=== PATIENT | female | born 1960 | race Caucasian/White ===

== ENCOUNTER → 2016-05-22 | Outpatient (REF) | payer BC, OTHER ==
[2016-05-26 00:06] LABS: Lyme Disease IgG/IgM Antibodie <0.91 ISR (0.00-0.90); Lyme Disease IgM Ab Quantitati <0.80 index (0.00-0.79)
== END ==
LOC: M LAB REF 15:03
PROVIDERS: ATTEND Nurse Practitioner Adult Health
DX: G50.0 Trigeminal neuralgia (principal)

== ENCOUNTER 2017-02-04 17:29 | Emergency (ER) | payer BC, OTHER ==
[~2017-02-04] VITALS: Ht 172.7 cm; Wt 75.0 kg
[2017-02-04 17:30] VITALS: BP 145/86
[2017-02-04] MEDS ORDERED: LISI2.5T3 PO (17:39)
[2017-02-04] MEDS ORDERED: ASPI325T PO (17:39)
[2017-02-04] MEDS ORDERED: ASPI81TA85 PO (17:39)
[2017-02-04] MEDS ORDERED: RANI75TA9 PO (17:39)
[2017-02-04] MEDS ORDERED: IBUP200C10 PO (17:39)
--- NOTE | 2017-02-04 19:20 | REPUSA ---
HISTORY: Trauma. TECHNIQUE: Multiple thin section helically-acquired axially-displayed and helically acquired coronall y displayed computed tomographic images of the face are obtained from the mandible through the fronta l sinuses, with images obtained at soft tissue and bone window. 2D reformatted images were performed. FINDINGS: Normal bony mineralization. No fractures. Normal orbits. Normal, clear paranasal sinuses. Normal oral and nasal cavities. Normal infratemporal fossa and deep parapharyngeal spaces with normal muscles of mastication. Normal parotid and submandibular glands. IMPRESSION: Normal examination of the face. Thank you for your kind referral of this patient
--- NOTE | 2017-02-04 19:30 | REPUSA ---
CLINICAL HISTORY: Headaches. TECHNIQUE: Multiple axial brain CT scan sections were obtained from base to vertex without contrast a dministration. COMMENTS: The study shows normal configuration of sella turcica. There are no intra or extra-axial collections. There is no mass effect or midline shift. There is no evidence of hematoma formation. No hydrocephal us is present. No abnormal calcifications are noted. No significant abnormalities are seen either in the posterior fossa or supratentorial compartment. The sinuses and mastoid air cells are patent. IMPRESSION: No evidence of acute intracranial pathology. Thank you for your kind referral of this patient.
== END 2017-02-04 20:21 | disposition home or self-care (01) ==
LOC: M ED 17:29
DX: S00.83XA Contusion of other part of head, initial encounter (principal); W22.8XXA Striking against or struck by other objects, initial encounter; Y92.89 Other specified places as the place of occurrence of the external cause; Y93.89 Activity, other specified; Y99.8 Other external cause status; J45.909 Unspecified asthma, uncomplicated; G50.0 Trigeminal neuralgia; Z79.82 Long term (current) use of aspirin; Z79.899 Other long term (current) drug therapy; Z88.8 Allergy status to other drugs, medicaments and biological substances

== ENCOUNTER → 2017-05-14 | Outpatient (REF) | payer BC ==
[2017-05-14 16:10] LABS: LIPASE 246 U/L (73-393)
[2017-05-14 16:10] LABS: AMYLASE 133 U/L (25-115)
[2017-05-17 10:14] LABS: CONTROL LINE HPYORI INT CTR LINE PRESENT; H PYLORI QUALITATIVE IgG NEGATIVE (NEGATIVE)
== END ==
LOC: M LAB REF 15:50
DX: R10.9 Unspecified abdominal pain (principal); R11.0 Nausea
CPT/HCPCS: 82150

== ENCOUNTER → 2019-07-20 | Outpatient (CLI) | payer BC ==
[~2019-07-20] MED LIST: ASPI-1 PO; ASPI81TA85 PO; IBUP200C25 PO; LISI-1046 PO; RANI75TA15 PO
--- NOTE | 2019-07-20 12:35 | REP ---
FOCUSED RIGHT BREAST SONOGRAPHY: HISTORY: Right breast pain. 9:30 position 9 cm from the nipple and 11-o'clock position 8 cm from the nipple. Comparison mammography February 27, 2019 and comparison right axillary sonography February 27, 2019. SONOGRAPHIC FINDINGS: Focused right breast sonography is performed at 9:30-o'clock position, 9 cm from nipple and at 11-o'clock position, 8 cm from the nipple. In these areas, normal fibroglandular background echotexture is seen. No cyst, mass, or acoustic shadowing is seen. No architectural distortion is noted. Right axillary sonography is performed and multiple normal-sized normal appearing lymph nodes are seen. The largest measures 1.1 x 2.7 x 0.7 cm in diameter. They appear to have hilar fatty architecture. IMPRESSION: BIRADS category 2 benign findings. Clinical followup is advised.
== END ==
LOC: M WHC 10:35
PROVIDERS: ATTEND Surgery
DX: N64.4 Mastodynia (principal); M79.621 Pain in right upper arm

== ENCOUNTER → 2019-10-18 | Outpatient (CLI) | payer BC ==
[~2019-10-18] MED LIST changes: -ASPI81TA85 PO; +ASPI81TA86 PO; -LISI-1046 PO; +LISI2.5T2 PO
--- NOTE | 2019-12-08 13:59 | REP ---
ABDOMINAL AORTIC ULTRASOUND: HISTORY: Family history of abdominal aortic aneurysm. COMPARISON: None available. Delay in reporting results from malfunction of the hospital computer system as a results of a malware attack. TECHNIQUE: The current study is performed with transabdominal and color Doppler imaging. FINDINGS: The abdominal aorta proximally measures 2.3 x 2.5 cm. Renal artery level is 1.9 x 1.2 cm. Mid-aorta is 1.7 x 1.8 cm. Distal aorta above bifurcation is 1.6 x 1.6 cm. Right common iliac artery measures 0.8 x 1.3 cm. Left common iliac artery measures 1.0 x 1.0 cm. IMPRESSION: These measurements are normal. There is no ultrasound evidence of abdominal aortic aneurysm. MTDD
== END ==
LOC: M WHC 13:04
PROVIDERS: ATTEND Physician Assistant
DX: Z86.79 Personal history of other diseases of the circulatory system (principal)

== ENCOUNTER → 2020-01-25 | Outpatient (REF) | payer BC | LOC: M LAB REF 17:01 | PROVIDERS: ATTEND Family Medicine | DX: D48.5 Neoplasm of uncertain behavior of skin (principal) ==

== ENCOUNTER → 2020-03-01 | Outpatient (CLI) | payer BC ==
[2020-03-01 13:25] LABS: BASO # 0.1 10^3/uL (0.0-0.2); BASO % 0.7 % (0.0-1.0); EOS # 0.1 10^3/uL (0.0-0.5); EOS % 1.7 % (0.0-3.0); HEMATOCRIT 41.8 % (36.0-47.0); HEMOGLOBIN 13.1 g/dl (12.0-15.5); LYMPH # 1.9 10^3/uL (1.5-5.0); LYMPH % 27.4 % (24.0-44.0); MEAN CORPUSCULAR HEMOGLOBIN 27.7 pg (27.0-33.0); MEAN CORPUSCULAR HGB CONC 31.3 g/dl (32.0-36.5); MEAN CORPUSCULAR VOLUME 88.4 fl (80.0-96.0); MONO # 0.5 10^3/uL (0.0-0.8); MONO % 6.8 % (0.0-5.0); NEUTROPHILS # 4.4 10^3/uL (1.5-8.5); NEUTROPHILS % 63.1 % (36.0-66.0); PLATELET COUNT, AUTOMATED 296 10^3/uL (150-450); RED BLOOD COUNT 4.73 10^6/uL (4.00-5.40); WHITE BLOOD COUNT 6.9 10^3/uL (4.0-10.0)
[2020-03-01 13:49] LABS: ERYTHROCYTE SEDIMENTATION RATE 21 mm/hr (0-30)
[2020-03-01 13:56] LABS: ALBUMIN 3.9 GM/DL (3.2-5.2); ALT/SGPT 25 U/L (12-78); BILIRUBIN,TOTAL 0.4 MG/DL (0.2-1.0); BLOOD UREA NITROGEN 13 MG/DL (7-18); CALCIUM LEVEL 9.6 MG/DL (8.8-10.2); CARBON DIOXIDE LEVEL 28 MEQ/L (21-32); CHLORIDE LEVEL 105 MEQ/L (98-107); CREATININE FOR GFR 0.92 MG/DL (0.55-1.30); GLOMERULAR FILTRATION RATE > 60.0 (>45); GLUCOSE, FASTING 78 MG/DL (70-100); POTASSIUM SERUM 4.1 MEQ/L (3.5-5.1); SODIUM LEVEL 138 MEQ/L (136-145); TOTAL PROTEIN 8.2 GM/DL (6.4-8.2); URIC ACID 4.7 MG/DL (2.6-6.0)
--- NOTE | 2020-03-01 14:41 | REPPI ---
INDICATION: M25.562 PAIN IN LEFT KNEE. COMPARISON: None. TECHNIQUE: Five views. FINDINGS: Five views of the left knee demonstrate non articular spurring of the superior pole of patella consistent with chronic quadriceps tendinopathy. Bones, joints and soft tissues are otherwise unremarkable. No erosive change. There is no evidence of joint effusion.. No fracture or subluxation is seen. No opaque foreign body noted. IMPRESSION: Spurring on the superior pole of the patella at the quadriceps tendon insertion. Otherwise negative.. <Electronically signed by Asael Lange > 03/01/20 [id number]
[2020-03-02 16:08] LABS: Lyme Disease IgG/IgM Antibodie <0.91 ISR (0.00-0.90); Lyme Disease IgM Ab Quantitati <0.80 index (0.00-0.79)
== END ==
LOC: M PLAIMG 11:37
PROVIDERS: ATTEND Physician Assistant
DX: M25.762 Osteophyte, left knee (principal)

== ENCOUNTER → 2020-03-01 | Outpatient (CLI) | payer BC ==
--- NOTE | 2020-03-01 11:24 | REPMRS ---
Patient History The patient states she had a clinical breast exam in August 2019. Patient is postmenopausal. Family history of colorectal cancer at age 70 in maternal grandmother, colorectal cancer at age 69 in maternal aunt. Taking unspecified hormones for 3 months. Diagnostic Bilateral Mammo: March 01, 2020 - Exam #: [id number] Bilateral CC and MLO view(s) were taken. Technologist: Lizeth Walker, Technologist Prior study comparison: February 27, 2019, bilateral digital mammo screening bilat, performed at [facility]. January 18, 2018, bilateral digital mammo screening bilat, performed at [facility]. September 16, 2016, bilateral digital mammo screening bilat, performed at [facility]. FINDINGS: There are scattered fibroglandular densities. The Volpara volumetric breast density category is:B. There has been no change in the appearance of the mammogram from the prior studies. There is a mild amount of scattered fibroglandular density which is fairly symmetric. There is no interval development of dominant mass, architectural distortion, or grouped microcalcification suggestive of malignancy. 3-D tomosynthesis shows no additional findings. Assessment: BI-RADS/ACR category 1 mammogram. Negative Mammogram. Recommendation Routine screening mammogram of both breasts in 1 year (for women over age 40). This patient's [facility] Lifetime Breast Cancer Risk is estimated at 4.4 %. This mammogram was interpreted with the aid of an FDA-approved computer-aided dectection system. Electronically Signed By: Asael Lange MD 03/01/20 [id number]
== END ==
LOC: M WHC 10:39
PROVIDERS: ATTEND Surgery
DX: I88.9 Nonspecific lymphadenitis, unspecified (principal); N64.4 Mastodynia; M79.621 Pain in right upper arm; Z79.899 Other long term (current) drug therapy
CPT/HCPCS: 77066; G0279

== ENCOUNTER → 2020-08-02 | Outpatient (REF) | payer BC | LOC: M LAB REF 15:25 | PROVIDERS: ATTEND Family Medicine | DX: N76.0 Acute vaginitis (principal) ==

== ENCOUNTER → 2020-11-15 | Outpatient (CLI) | payer BC ==
[~2020-11-15] MED LIST changes: -LISI2.5T2 PO; +LISI2.5T9 PO
--- NOTE | 2020-11-15 12:38 | DEXAMM ---
INDICATION: Z13.820 SCREENING FOR OSTEOPOROSIS. COMPARISON: None. TECHNIQUE: Bone density was measured using dual-energy x-ray absorptionmetry (DEXA). FINDINGS: AP SPINE L1-L4 BMD 1.254 g/cm2 Young Adult T-Score 0.5 Age Matched Z-Score 1.8. LT FEMUR, TOTAL BMD 1.056 g/cm2 Young Adult T-Score 0.4 Age Matched Z-Score 1.4. LT NECK BMD 0.973 g/cm2 Young Adult T-Score -0.5 Age Matched Z-Score 0.8. RT FEMUR, TOTAL BMD 0.983 g/cm2 Young Adult T-Score -0.2 Age Matched Z-Score 0.8. RT NECK BMD 0.910 g/cm2 Young Adult T-Score -0.9 Age Matched Z-Score 0.4. IMPRESSION: There is normal bone density of the spine. There is normal bone density of the left hip. There is normal bone density of the right hip. FOLLOW-UP: Recommendation for the next bone density exam: 5-10 years. <Electronically signed by Asael Lange > 11/15/20 [id number]
== END ==
LOC: M WHC 10:07
PROVIDERS: ATTEND Family Medicine
DX: Z13.820 Encounter for screening for osteoporosis (principal)

== ENCOUNTER → 2020-11-19 | Outpatient (CLI) | payer BC ==
[2020-11-19 14:52] LABS: BLOOD UREA NITROGEN 13 MG/DL (7-18); CALCIUM LEVEL 8.9 MG/DL (8.8-10.2); CARBON DIOXIDE LEVEL 26 MEQ/L (21-32); CHLORIDE LEVEL 108 MEQ/L (98-107); CREATININE FOR GFR 0.93 MG/DL (0.55-1.30); GLOMERULAR FILTRATION RATE > 60.0 (>45); GLUCOSE, FASTING 84 MG/DL (70-100); POTASSIUM SERUM 4.5 MEQ/L (3.5-5.1); SODIUM LEVEL 139 MEQ/L (136-145)
== END ==
LOC: M PLALAB 11:21
PROVIDERS: ATTEND Family Medicine
DX: I10 Essential (primary) hypertension (principal)

== ENCOUNTER → 2020-11-20 | Outpatient (CLI) | payer BC ==
--- NOTE | 2020-11-21 09:10 | REP ---
INDICATION: POST COITAL BLEEDING COMPARISON: None. TECHNIQUE: Transabdominal pelvic ultrasound followed by transvaginal examination for better evaluation of the endometrium and adnexa with color Doppler evaluation of the ovaries. FINDINGS: Bladder is unremarkable and measures 14.0 x 10.5 x 10.5 cm. Patient is noted to be status post total hysterectomy. No pelvic fluid or adnexal mass lesion. IMPRESSION: Unremarkable examination. <Electronically signed by Rodrigue Carranza > 11/21/20 [id number]
== END ==
LOC: M RAD 11:16
PROVIDERS: ATTEND Family Medicine
DX: N93.0 Postcoital and contact bleeding (principal)

== ENCOUNTER → 2020-12-12 | Outpatient (CLI) | payer BC ==
--- NOTE | 2020-12-12 13:05 | REP ---
INDICATION: DISORDER OF CIRCULATORY SYSTEM COMPARISON: None. TECHNIQUE: Real-time ultrasound evaluation and duplex Doppler interrogation of the extracranial carotid vasculature is performed. FINDINGS: There is mild plaquing and narrowing in both carotid bulbs extending into the internal and external carotid arteries. Luminal narrowing is less than 50%. There is no evidence of hemodynamically significant stenosis of either internal carotid artery. Normal flow velocities are seen. The vertebral arteries demonstrate normal direction of flow. RIGHT LEFT Peak systolic velocity ICA 128 cm/s 118 cm/s End diastolic velocity ICA 46.9 cm/s 42.6 cm/s Peak systolic velocity CCA 99.4 cm/s 118cm/s Peak systolic velocity ECA 117 cm/s 98.8 cm/s ICA/CCA ratio 1.3 1.0 IMPRESSION: Bilateral luminal narrowing of the internal carotid arteries less than 50%. No evidence of hemodynamically significant stenosis. <Electronically signed by John Gaitan > 12/12/20 [id number]
== END ==
LOC: M WHC 12:15
PROVIDERS: ATTEND Family Medicine
DX: I99.8 Other disorder of circulatory system (principal)

== ENCOUNTER → 2021-02-10 | Outpatient (REF) | payer BC | LOC: M LAB REF 16:55 | PROVIDERS: ATTEND Physician Assistant | DX: B00.1 Herpesviral vesicular dermatitis (principal) ==

== ENCOUNTER → 2021-02-24 | Outpatient (CLI) | payer BC ==
[2021-02-24 13:21] LABS: BASO # 0.1 10^3/uL (0.0-0.2); BASO % 0.8 % (0.0-1.0); EOS # 0.2 10^3/uL (0.0-0.5); EOS % 2.6 % (0.0-3.0); HEMATOCRIT 41.6 % (36.0-47.0); HEMOGLOBIN 13.8 g/dl (12.0-15.5); LYMPH # 1.9 10^3/uL (1.5-5.0); LYMPH % 25.8 % (24.0-44.0); MEAN CORPUSCULAR HEMOGLOBIN 30.1 pg (27.0-33.0); MEAN CORPUSCULAR HGB CONC 33.2 g/dl (32.0-36.5); MEAN CORPUSCULAR VOLUME 90.8 fl (80.0-96.0); MONO # 0.6 10^3/uL (0.0-0.8); MONO % 8.1 % (2.0-8.0); NEUTROPHILS # 4.5 10^3/uL (1.5-8.5); NEUTROPHILS % 62.3 % (36.0-66.0); PLATELET COUNT, AUTOMATED 285 10^3/uL (150-450); RED BLOOD COUNT 4.58 10^6/uL (4.00-5.40); WHITE BLOOD COUNT 7.3 10^3/uL (4.0-10.0)
[2021-02-24 13:47] LABS: ALBUMIN 3.7 GM/DL (3.2-5.2); ALT/SGPT 25 U/L (12-78); BILIRUBIN,TOTAL 0.3 MG/DL (0.2-1.0); BLOOD UREA NITROGEN 17 MG/DL (7-18); CALCIUM LEVEL 8.6 MG/DL (8.8-10.2); CARBON DIOXIDE LEVEL 27 MEQ/L (21-32); CHLORIDE LEVEL 108 MEQ/L (98-107); CHOLESTEROL LEVEL 188 MG/DL (<200); CHOLESTEROL RISK RATIO 3.686 (<5); FREE T4 0.92 NG/DL (0.76-1.46); GLOMERULAR FILTRATION RATE > 60.0 (>45); GLUCOSE, FASTING 83 MG/DL (70-100); HDL CHOLESTEROL 51 MG/DL (>40); LDL CHOLESTEROL 129 MG/DL (<100); NON-HDL-C 137 MG/DL; POTASSIUM SERUM 4.5 MEQ/L (3.5-5.1); SODIUM LEVEL 141 MEQ/L (136-145); TOTAL PROTEIN 7.8 GM/DL (6.4-8.2); TRIGLYCERIDES LEVEL 40 MG/DL (<150)
== END ==
LOC: M PLALAB 10:39
PROVIDERS: ATTEND Family Medicine
DX: Z13.220 Encounter for screening for lipoid disorders (principal); Z13.29 Encounter for screening for other suspected endocrine disorder; I10 Essential (primary) hypertension

== ENCOUNTER → 2021-03-13 | Outpatient (CLI) | payer BC ==
[~2021-03-13] MED LIST changes: +CARB1TAB20; +CYCL5TAB PO; +NAPR-837 PO; +OMEP-173
== END ==
LOC: M WHC 14:24
PROVIDERS: ATTEND Family Medicine
DX: Z12.31 Encounter for screening mammogram for malignant neoplasm of breast (principal); N63.25 Unspecified lump in the left breast, overlapping quadrants

== ENCOUNTER 2021-03-17 18:29 | Emergency (ER) | payer OTHER, BC ==
[~2021-03-17] VITALS: Ht 172.7 cm; Wt 79.5 kg
[~2021-03-17 18:29] MED LIST changes: -CARB1TAB20; -CYCL5TAB PO; -NAPR-837 PO; -OMEP-173
[2021-03-17] MEDS ORDERED: CARB1TAB20 (18:40)
[2021-03-17] MEDS ORDERED: OMEP-173 (18:53)
[2021-03-17] MEDS ORDERED: KETOROLAC 30 MG/ML 1ML VIAL IV ONE (19:55)
[2021-03-17 21:22] VITALS: BP 176/89
[2021-03-17] MEDS ORDERED: CYCLOBENZAPRINE 5MG TABLET PO ONE (22:20)
[2021-03-17] MEDS ORDERED: NAPR-837 PO (22:21)
[2021-03-17] MEDS ORDERED: CYCL5TAB PO (22:21)
[2021-03-17 22:30] VITALS: BP 155/90
== END 2021-03-17 22:45 | disposition home or self-care (01) ==
LOC: M ED 18:29 → EDBD 18:29 → M ED 22:45
DX: Z04.1 Encounter for examination and observation following transport accident (principal); I10 Essential (primary) hypertension; K21.9 Gastro-esophageal reflux disease without esophagitis; G50.0 Trigeminal neuralgia; Z79.899 Other long term (current) drug therapy; Z88.8 Allergy status to other drugs, medicaments and biological substances; Z91.041 Radiographic dye allergy status
CPT/HCPCS: 70450; 71250; 72125; 74176; 96374; 99284; J1885

== ENCOUNTER → 2021-04-08 | Outpatient (CLI) | payer BC ==
[~2021-04-08] MED LIST changes: +CARB1TAB20; +CYCL5TAB PO; +NAPR-837 PO; +OMEP-173
[2021-04-08 13:26] LABS: BASO # 0.1 10^3/uL (0.0-0.2); EOS # 0.1 10^3/uL (0.0-0.5); EOS % 1.5 % (0.0-3.0); HEMATOCRIT 41.9 % (36.0-47.0); HEMOGLOBIN 13.7 g/dl (12.0-15.5); LYMPH % 25.9 % (24.0-44.0); MEAN CORPUSCULAR HEMOGLOBIN 29.7 pg (27.0-33.0); MEAN CORPUSCULAR HGB CONC 32.7 g/dl (32.0-36.5); MEAN CORPUSCULAR VOLUME 90.7 fl (80.0-96.0); MONO # 0.5 10^3/uL (0.0-0.8); MONO % 6.4 % (2.0-8.0); NEUTROPHILS # 5.1 10^3/uL (1.5-8.5); NEUTROPHILS % 64.8 % (36.0-66.0); PLATELET COUNT, AUTOMATED 275 10^3/uL (150-450); RED BLOOD COUNT 4.62 10^6/uL (4.00-5.40); WHITE BLOOD COUNT 7.9 10^3/uL (4.0-10.0)
[2021-04-08 15:00] LABS: ALBUMIN 3.8 GM/DL (3.2-5.2); ALT/SGPT 24 U/L (12-78); BILIRUBIN,TOTAL 0.3 MG/DL (0.2-1.0); BLOOD UREA NITROGEN 13 MG/DL (7-18); CALCIUM LEVEL 8.6 MG/DL (8.8-10.2); CARBON DIOXIDE LEVEL 28 MEQ/L (21-32); CHLORIDE LEVEL 107 MEQ/L (98-107); CREATININE FOR GFR 0.92 MG/DL (0.55-1.30); FREE T4 0.88 NG/DL (0.76-1.46); GLOMERULAR FILTRATION RATE > 60.0 (>45); GLUCOSE, FASTING 83 MG/DL (70-100); POTASSIUM SERUM 4.4 MEQ/L (3.5-5.1); SODIUM LEVEL 139 MEQ/L (136-145); TOTAL PROTEIN 7.9 GM/DL (6.4-8.2)
== END ==
LOC: M PLALAB 11:20
PROVIDERS: ATTEND Family Medicine
DX: R94.6 Abnormal results of thyroid function studies (principal); I10 Essential (primary) hypertension

== ENCOUNTER → 2021-04-08 | Outpatient (CLI) | payer OTHER, BC | LOC: M WHC 12:30 | PROVIDERS: ATTEND Family Medicine | DX: N60.02 Solitary cyst of left breast (principal) | CPT/HCPCS: 76642; 77065; G0279 ==

== ENCOUNTER → 2021-07-24 | Outpatient (CLI) | payer OTHER | LOC: M LAB 14:32 | PROVIDERS: ATTEND Orthopaedic Surgery | DX: M54.50 Low back pain, unspecified (principal) ==

== ENCOUNTER → 2021-08-12 | Outpatient (CLI) | payer BC | LOC: M RAD 14:46 | PROVIDERS: ATTEND Nurse Practitioner Adult Health | DX: N28.89 Other specified disorders of kidney and ureter (principal) ==

== ENCOUNTER → 2021-08-14 | Outpatient (CLI) | payer BC ==
[~2021-08-14] MED LIST changes: +ISOVUE-370 76% 100ML VIAL As Ordered ONE
[2021-08-14 14:13] LABS: BASO # 0.1 10^3/uL (0.0-0.2); BASO % 0.8 % (0.0-1.0); EOS # 0.1 10^3/uL (0.0-0.5); EOS % 1.2 % (0.0-3.0); HEMATOCRIT 39.4 % (36.0-47.0); HEMOGLOBIN 12.9 g/dl (12.0-15.5); LYMPH # 1.7 10^3/uL (1.5-5.0); LYMPH % 22.1 % (24.0-44.0); MEAN CORPUSCULAR HEMOGLOBIN 29.9 pg (27.0-33.0); MEAN CORPUSCULAR HGB CONC 32.7 g/dl (32.0-36.5); MEAN CORPUSCULAR VOLUME 91.2 fl (80.0-96.0); MONO # 0.6 10^3/uL (0.0-0.8); MONO % 7.8 % (2.0-8.0); NEUTROPHILS # 5.2 10^3/uL (1.5-8.5); NEUTROPHILS % 67.8 % (36.0-66.0); PLATELET COUNT, AUTOMATED 263 10^3/uL (150-450); RED BLOOD COUNT 4.32 10^6/uL (4.00-5.40); WHITE BLOOD COUNT 7.7 10^3/uL (4.0-10.0)
[2021-08-14 14:35] LABS: ALBUMIN 3.7 GM/DL (3.2-5.2); ALT/SGPT 23 U/L (12-78); BILIRUBIN,TOTAL 0.2 MG/DL (0.2-1.0); BLOOD UREA NITROGEN 17 MG/DL (7-18); CALCIUM LEVEL 8.7 MG/DL (8.8-10.2); CARBON DIOXIDE LEVEL 27 MEQ/L (21-32); CHLORIDE LEVEL 109 MEQ/L (98-107); CREATININE FOR GFR 0.99 MG/DL (0.55-1.30); FREE T4 0.85 NG/DL (0.76-1.46); GLOMERULAR FILTRATION RATE > 60.0 (>45); GLUCOSE, FASTING 73 MG/DL (70-100); SODIUM LEVEL 136 MEQ/L (136-145); TOTAL PROTEIN 8.1 GM/DL (6.4-8.2)
== END ==
LOC: M RAD 13:34
PROVIDERS: ATTEND Nurse Practitioner Adult Health
DX: D41.01 Neoplasm of uncertain behavior of right kidney (principal); R94.6 Abnormal results of thyroid function studies; I10 Essential (primary) hypertension
CPT/HCPCS: 36415; 74178; 80053; 84439; 84443; 85025; Q9967

== ENCOUNTER → 2021-08-19 | Outpatient (RCR) | payer OTHER ==
[~2021-08-19] MED LIST changes: -ISOVUE-370 76% 100ML VIAL As Ordered ONE
== END ==
LOC: M PT 08-14 12:11
PROVIDERS: ATTEND Psychiatry & Neurology Neurology
DX: M79.621 Pain in right upper arm (principal)

== ENCOUNTER 2021-08-28 11:58 | Outpatient (RCR) | payer OTHER | END 2021-09-18 | LOC: M PT 11:58 | PROVIDERS: ATTEND Psychiatry & Neurology Neurology | DX: M79.601 Pain in right arm (principal) | CPT/HCPCS: 97140; G0283 ==

== ENCOUNTER → 2021-09-25 | Outpatient (CLI) | payer BC | LOC: M WHC 12:03 | PROVIDERS: ATTEND Nurse Practitioner Adult Health | DX: M79.652 Pain in left thigh (principal) ==

== ENCOUNTER → 2021-12-03 | Outpatient (CLI) | payer BC | LOC: M WHC 11:03 | PROVIDERS: ATTEND Physician Assistant | DX: E03.9 Hypothyroidism, unspecified (principal) ==

== ENCOUNTER → 2022-01-29 | Outpatient (CLI) | payer BC ==
[2022-01-29 14:55] LABS: BASO % 0.6 % (0.0-1.0); EOS # 0.2 10^3/uL (0.0-0.5); EOS % 3.4 % (0.0-3.0); HEMATOCRIT 39.6 % (36.0-47.0); HEMOGLOBIN 12.6 g/dl (12.0-15.5); LYMPH # 1.6 10^3/uL (1.5-5.0); LYMPH % 23.3 % (24.0-44.0); MEAN CORPUSCULAR HEMOGLOBIN 29.5 pg (27.0-33.0); MEAN CORPUSCULAR HGB CONC 31.8 g/dl (32.0-36.5); MEAN CORPUSCULAR VOLUME 92.7 fl (80.0-96.0); MONO # 0.5 10^3/uL (0.0-0.8); MONO % 6.9 % (2.0-8.0); NEUTROPHILS # 4.4 10^3/uL (1.5-8.5); NEUTROPHILS % 65.5 % (36.0-66.0); PLATELET COUNT, AUTOMATED 274 10^3/uL (150-450); RED BLOOD COUNT 4.27 10^6/uL (4.00-5.40); WHITE BLOOD COUNT 6.7 10^3/uL (4.0-10.0)
[2022-01-29 16:05] LABS: ALBUMIN 3.6 GM/DL (3.2-5.2); ALT/SGPT 23 U/L (12-78); BILIRUBIN,TOTAL 0.4 MG/DL (0.2-1.0); BLOOD UREA NITROGEN 13 MG/DL (7-18); CALCIUM LEVEL 8.4 MG/DL (8.8-10.2); CARBON DIOXIDE LEVEL 28 MEQ/L (21-32); CHLORIDE LEVEL 108 MEQ/L (98-107); CREATININE FOR GFR 0.84 MG/DL (0.55-1.30); FREE T4 1.16 NG/DL (0.76-1.46); GLOMERULAR FILTRATION RATE > 60.0 (>45); GLUCOSE, FASTING 85 MG/DL (70-100); POTASSIUM SERUM 4.5 MEQ/L (3.5-5.1); SODIUM LEVEL 140 MEQ/L (136-145); TOTAL PROTEIN 7.3 GM/DL (6.4-8.2)
[2022-01-29 17:20] LABS: FOLATE 7.2 NG/ML; THYROID PEROXIDASE ANTIBODY 33.6 U/ML (<60.0); TOTAL 25(OH) VITAMIN D 26.9 NG/ML (30.0-100.0); VITAMIN B12 LEVEL 487 PG/ML
== END ==
LOC: M PLALAB 10:14
PROVIDERS: ATTEND Physician Assistant
DX: E03.9 Hypothyroidism, unspecified (principal)

== ENCOUNTER → 2022-04-10 | Outpatient (CLI) | payer BC | LOC: M WHC 10:52 | PROVIDERS: ATTEND Physician Assistant | DX: Z12.31 Encounter for screening mammogram for malignant neoplasm of breast (principal) ==

== ENCOUNTER → 2022-05-04 | Outpatient (REF) | payer BC ==
[2022-05-04 15:10] LABS: BASO # 0.1 10^3/uL (0.0-0.2); BASO % 0.8 % (0.0-1.0); EOS # 0.2 10^3/uL (0.0-0.5); HEMATOCRIT 40.2 % (36.0-47.0); HEMOGLOBIN 12.8 g/dl (12.0-15.5); LYMPH # 2.3 10^3/uL (1.5-5.0); LYMPH % 35.3 % (24.0-44.0); MEAN CORPUSCULAR HEMOGLOBIN 28.7 pg (27.0-33.0); MEAN CORPUSCULAR HGB CONC 31.8 g/dl (32.0-36.5); MEAN CORPUSCULAR VOLUME 90.1 fl (80.0-96.0); MONO # 0.5 10^3/uL (0.0-0.8); MONO % 7.6 % (2.0-8.0); NEUTROPHILS # 3.4 10^3/uL (1.5-8.5); NEUTROPHILS % 53.1 % (36.0-66.0); PLATELET COUNT, AUTOMATED 267 10^3/uL (150-450); RED BLOOD COUNT 4.46 10^6/uL (4.00-5.40); WHITE BLOOD COUNT 6.4 10^3/uL (4.0-10.0)
[2022-05-04 15:50] LABS: ALBUMIN 3.7 G/DL (3.2-5.2); ALKALINE PHOSPHATASE 69 U/L (46-116); ALT/SGPT 23 U/L (7.0-40); AST/SGOT 21 U/L (<34); BILIRUBIN,TOTAL 0.7 MG/DL (0.3-1.2); BLOOD UREA NITROGEN 17 MG/DL (9-23); CALCIUM LEVEL 8.8 MG/DL (8.3-10.6); CARBON DIOXIDE LEVEL 28 MMOL/L (20-31); CHLORIDE LEVEL 104 MMOL/L (98-107); CREATININE FOR GFR 0.87 MG/DL (0.55-1.30); FREE T4 1.36 NG/DL (0.89-1.76); GLOMERULAR FILTRATION RATE > 60.0 (>45); GLUCOSE, FASTING 77 MG/DL (74-106); POTASSIUM SERUM 4.5 MMOL/L (3.5-5.1); SODIUM LEVEL 139 MMOL/L (136-145); THYROID STIMULATING HORMONE 2.003 uIU/ML (0.55-4.78); TOTAL 25(OH) VITAMIN D 25.3 NG/ML (20.0-100.0); TOTAL PROTEIN 7.4 G/DL (5.7-8.2)
== END ==
LOC: M LABDRWAD 14:34
PROVIDERS: ATTEND Physician Assistant
DX: E03.9 Hypothyroidism, unspecified (principal)

== ENCOUNTER → 2022-08-03 | Outpatient (CLI) | payer BC | LOC: M ADAMS 15:06 | PROVIDERS: ATTEND Physician Assistant | DX: R05.9 Cough, unspecified (principal) ==

== ENCOUNTER → 2022-08-04 | Outpatient (REF) | payer BC | LOC: M LAB REF 17:33 | PROVIDERS: ATTEND Physician Assistant | DX: J20.9 Acute bronchitis, unspecified (principal) ==

== ENCOUNTER → 2022-08-28 | Outpatient (CLI) | payer BC ==
[~2022-08-28] MED LIST changes: +ISOVUE-370 76% 100ML VIAL As Ordered ONE
== END ==
LOC: M RAD 08:45
PROVIDERS: ATTEND Physician Assistant
DX: R04.2 Hemoptysis (principal)
CPT/HCPCS: 71275; Q9967

== ENCOUNTER → 2022-09-24 | Outpatient (REF) | payer BC ==
[~2022-09-24] MED LIST changes: -ISOVUE-370 76% 100ML VIAL As Ordered ONE
[2022-09-24 14:25] LABS: BASO # 0.1 10^3/uL (0.0-0.2); BASO % 1.3 % (0.0-1.0); EOS # 0.2 10^3/uL (0.0-0.5); EOS % 3.1 % (0.0-3.0); HEMATOCRIT 39.3 % (36.0-47.0); HEMOGLOBIN 12.6 g/dl (12.0-15.5); LYMPH # 1.6 10^3/uL (1.5-5.0); MEAN CORPUSCULAR HGB CONC 32.1 g/dl (32.0-36.5); MEAN CORPUSCULAR VOLUME 90.6 fl (80.0-96.0); MONO # 0.4 10^3/uL (0.0-0.8); MONO % 6.8 % (2.0-8.0); NEUTROPHILS # 3.2 10^3/uL (1.5-8.5); NEUTROPHILS % 58.4 % (36.0-66.0); PLATELET COUNT, AUTOMATED 271 10^3/uL (150-450); RED BLOOD COUNT 4.34 10^6/uL (4.00-5.40); WHITE BLOOD COUNT 5.4 10^3/uL (4.0-10.0)
[2022-09-24 15:03] LABS: ALBUMIN 3.9 G/DL (3.2-5.2); ALKALINE PHOSPHATASE 62 U/L (46-116); ALT/SGPT < 9 U/L (7.0-40); AST/SGOT 17 U/L (<34); BILIRUBIN,TOTAL 0.4 MG/DL (0.3-1.2); BLOOD UREA NITROGEN 13 MG/DL (9-23); CALCIUM LEVEL 8.6 MG/DL (8.3-10.6); CARBON DIOXIDE LEVEL 27 MMOL/L (20-31); CHLORIDE LEVEL 109 MMOL/L (98-107); GLOMERULAR FILTRATION RATE > 60.0 (>45); GLUCOSE, FASTING 81 MG/DL (74-106); SODIUM LEVEL 142 MMOL/L (136-145)
[2022-09-24 15:04] LABS: THYROID STIMULATING HORMONE 3.015 uIU/ML (0.55-4.78)
[2022-09-24 15:05] LABS: FREE T4 1.25 NG/DL (0.89-1.76); TOTAL 25(OH) VITAMIN D 99.3 NG/ML (20.0-100.0)
[2022-09-25 16:18] LABS: HERPES ZOSTER, VARICELLA IgM <0.91 index (0.00-0.90); HSV TYPE I IgG SPECIFIC <0.91 index (0.00-0.90); HSV TYPE II IgG SPECIFIC 6.44 index (0.00-0.90)
== END ==
LOC: M LABDRWAD 12:28
PROVIDERS: ATTEND Physician Assistant
DX: B00.89 Other herpesviral infection (principal); E03.9 Hypothyroidism, unspecified

== ENCOUNTER → 2023-01-05 | Outpatient (CLI) | payer BC ==
[2023-01-05 18:47] LABS: ALBUMIN 3.7 G/DL (3.2-5.2); ALKALINE PHOSPHATASE 76 U/L (46-116); ALT/SGPT 24 U/L (7.0-40); AST/SGOT 16 U/L (<34); BILIRUBIN,TOTAL 0.3 MG/DL (0.3-1.2); BLOOD UREA NITROGEN 19 MG/DL (9-23); CALCIUM LEVEL 9.1 MG/DL (8.3-10.6); CARBON DIOXIDE LEVEL 29 MMOL/L (20-31); CHLORIDE LEVEL 106 MMOL/L (98-107); CREATININE FOR GFR 0.92 MG/DL (0.55-1.30); GLOMERULAR FILTRATION RATE > 60.0 (>45); GLUCOSE, FASTING 86 MG/DL (74-106); POTASSIUM SERUM 4.3 MMOL/L (3.5-5.1); SODIUM LEVEL 141 MMOL/L (136-145); TOTAL PROTEIN 7.7 G/DL (5.7-8.2)
[2023-01-05 18:48] LABS: CK-MB VALUE MASS < 1.0 NG/ML (<3.6)
[2023-01-05 18:49] LABS: CPK CREATINE PHOSPHOKINASE 49 U/L (34-145); MB/CK RELATIVE INDEX 2.04 (< OR =4)
== END ==
LOC: M PLALAB 15:55
PROVIDERS: ATTEND Physician Assistant
DX: I10 Essential (primary) hypertension (principal)

== ENCOUNTER → 2023-02-01 | Outpatient (REF) | payer BC ==
[2023-02-01 13:50] LABS: BASO # 0.1 10^3/uL (0.0-0.2); BASO % 0.7 % (0.0-1.0); EOS # 0.2 10^3/uL (0.0-0.5); EOS % 2.4 % (0.0-3.0); HEMATOCRIT 41.3 % (36.0-47.0); HEMOGLOBIN 13.6 g/dl (12.0-15.5); LYMPH # 1.9 10^3/uL (1.5-5.0); LYMPH % 28.7 % (24.0-44.0); MEAN CORPUSCULAR HEMOGLOBIN 29.2 pg (27.0-33.0); MEAN CORPUSCULAR HGB CONC 32.9 g/dl (32.0-36.5); MEAN CORPUSCULAR VOLUME 88.8 fl (80.0-96.0); MONO # 0.6 10^3/uL (0.0-0.8); MONO % 8.8 % (2.0-8.0); PLATELET COUNT, AUTOMATED 294 10^3/uL (150-450); RED BLOOD COUNT 4.65 10^6/uL (4.00-5.40); WHITE BLOOD COUNT 6.7 10^3/uL (4.0-10.0)
[2023-02-01 14:02] LABS: HEMOGLOBIN A1c 5.4 % (4.0-6.0)
[2023-02-01 14:24] LABS: ALBUMIN 4.1 G/DL (3.2-5.2); ALKALINE PHOSPHATASE 81 U/L (46-116); ALT/SGPT 24 U/L (7.0-40); AST/SGOT 15 U/L (<34); BILIRUBIN,TOTAL 0.5 MG/DL (0.3-1.2); BLOOD UREA NITROGEN 23 MG/DL (9-23); CALCIUM LEVEL 9.4 MG/DL (8.3-10.6); CARBON DIOXIDE LEVEL 30 MMOL/L (20-31); CHLORIDE LEVEL 99 MMOL/L (98-107); CHOLESTEROL LEVEL 203 MG/DL (<200); CHOLESTEROL RISK RATIO 3.71 (<5); CREATININE FOR GFR 1.03 MG/DL (0.55-1.30); FOLATE > 24.0 NG/ML (>5.4); FREE T4 1.29 NG/DL (0.89-1.76); GLOMERULAR FILTRATION RATE 57.4 (>45); GLUCOSE, FASTING 84 MG/DL (74-106); HDL CHOLESTEROL 54.7 MG/DL (>40); LDL CHOLESTEROL 132.7 MG/DL (<100); NON-HDL-C 148.3 MG/DL; SODIUM LEVEL 137 MMOL/L (136-145); TOTAL 25(OH) VITAMIN D 85.2 NG/ML (20.0-100.0); TOTAL PROTEIN 7.9 G/DL (5.7-8.2); TRIGLYCERIDES LEVEL 78 MG/DL (<150); VITAMIN B12 LEVEL 667 PG/ML (211-911)
== END ==
LOC: M LABDRWAD 12:49
PROVIDERS: ATTEND Physician Assistant
DX: E03.9 Hypothyroidism, unspecified (principal); I10 Essential (primary) hypertension; K21.9 Gastro-esophageal reflux disease without esophagitis

== ENCOUNTER 2023-02-13 19:11 | Emergency (ER) | payer BC ==
[~2023-02-13] VITALS: Ht 172.7 cm; Wt 80.7 kg
[2023-02-13] MEDS ORDERED: FLUT1BLS4 (19:34)
[2023-02-13] MEDS ORDERED: BUSP5TA (19:34)
[2023-02-13] MEDS ORDERED: LEVO25TA5 (19:34)
[2023-02-13] MEDS ORDERED: CHLO125TA (19:34)
[2023-02-13] MEDS ORDERED: LISI20TA33 (19:34)
[2023-02-13] MEDS ORDERED: NS 1,000 ML IV ONE (21:30)
[2023-02-13 21:39] LABS: BASO % 0.4 % (0.0-1.0); EOS # 0.1 10^3/uL (0.0-0.5); EOS % 0.5 % (0.0-3.0); HEMATOCRIT 36.6 % (36.0-47.0); HEMOGLOBIN 12.8 g/dl (12.0-15.5); LYMPH # 1.5 10^3/uL (1.5-5.0); LYMPH % 15.9 % (24.0-44.0); MEAN CORPUSCULAR HEMOGLOBIN 29.4 pg (27.0-33.0); MEAN CORPUSCULAR VOLUME 84.1 fl (80.0-96.0); MONO # 0.5 10^3/uL (0.0-0.8); NEUTROPHILS # 7.2 10^3/uL (1.5-8.5); PLATELET COUNT, AUTOMATED 268 10^3/uL (150-450); RED BLOOD COUNT 4.35 10^6/uL (4.00-5.40); WHITE BLOOD COUNT 9.2 10^3/uL (4.0-10.0)
[2023-02-13 21:49] LABS: CK-MB VALUE MASS < 1.0 NG/ML (<3.6); LIPASE 41 U/L (12-53)
[2023-02-13 21:53] LABS: FREE T4 1.25 NG/DL (0.89-1.76); THYROID STIMULATING HORMONE 2.193 uIU/ML (0.55-4.78)
[2023-02-13 21:55] LABS: ERYTHROCYTE SEDIMENTATION RATE 43 mm/hr (0-30)
[2023-02-13 21:57] LABS: ALBUMIN 3.8 G/DL (3.2-5.2); ALKALINE PHOSPHATASE 74 U/L (46-116); ALT/SGPT 20 U/L (7.0-40); AST/SGOT 20 U/L (<34); BILIRUBIN,DIRECT 0.2 MG/DL (<0.4); BILIRUBIN,TOTAL 0.6 MG/DL (0.3-1.2); BLOOD UREA NITROGEN 18 MG/DL (9-23); CALCIUM LEVEL 8.9 MG/DL (8.3-10.6); CARBON DIOXIDE LEVEL 29 MMOL/L (20-31); CHLORIDE LEVEL 92 MMOL/L (98-107); CPK CREATINE PHOSPHOKINASE 88 U/L (34-145); CREATININE FOR GFR 0.81 MG/DL (0.55-1.30); GLOMERULAR FILTRATION RATE > 60.0 (>45); GLUCOSE, FASTING 107 MG/DL (74-106); INR 1.07; MAGNESIUM LEVEL 1.8 MG/DL (1.8-2.4); MB/CK RELATIVE INDEX 1.13 (< OR =4); POTASSIUM SERUM 2.9 MMOL/L (3.5-5.1); PROTHROMBIN TIME 13.6 SECONDS (12.5-14.5); SODIUM LEVEL 131 MMOL/L (136-145); TOTAL PROTEIN 7.7 G/DL (5.7-8.2)
[2023-02-13 21:58] LABS: PARTIAL THROMBOPLASTIN TIME 27.8 SECONDS (24.8-34.2)
[2023-02-13] MEDS ORDERED: ISOVUE-370 76% 100ML VIAL As Ordered ONE (22:03)
[2023-02-13] MEDS ORDERED: POTASSIUM CHLORIDE 10MEQ SR TABLET PO ONE (22:05)
[2023-02-13] MEDS ORDERED: KCL 10MEQ/100ML SWI (KRUN) 10 MEQ in IV 1 EA IV ONE (22:40)
[2023-02-13 23:30] LABS: CK-MB VALUE MASS < 1.0 NG/ML (<3.6); CPK CREATINE PHOSPHOKINASE 103 U/L (34-145); MB/CK RELATIVE INDEX 0.97 (< OR =4)
[2023-02-14 01:09] LABS: BLOOD UREA NITROGEN 15 MG/DL (9-23); CALCIUM LEVEL 8.2 MG/DL (8.3-10.6); CARBON DIOXIDE LEVEL 26 MMOL/L (20-31); CHLORIDE LEVEL 96 MMOL/L (98-107); CREATININE FOR GFR 0.78 MG/DL (0.55-1.30); GLOMERULAR FILTRATION RATE > 60.0 (>45); GLUCOSE, FASTING 94 MG/DL (74-106); POTASSIUM SERUM 3.4 MMOL/L (3.5-5.1); SODIUM LEVEL 131 MMOL/L (136-145)
[2023-02-14 02:53] VITALS: BP 127/60; TEMP 98.6; O2SAT 99
== END 2023-02-14 03:03 | disposition home or self-care (01) ==
LOC: M ED 19:11
DX: R07.89 Other chest pain (principal); E87.6 Hypokalemia; I45.10 Unspecified right bundle-branch block; K21.9 Gastro-esophageal reflux disease without esophagitis; J45.909 Unspecified asthma, uncomplicated; E03.9 Hypothyroidism, unspecified; G50.0 Trigeminal neuralgia; Z82.49 Family history of ischemic heart disease and other diseases of the circulatory system; Z91.041 Radiographic dye allergy status; Z88.8 Allergy status to other drugs, medicaments and biological substances; Z79.899 Other long term (current) drug therapy; Z79.890 Hormone replacement therapy
CPT/HCPCS: 71275; 74174; 80047; 80048; 80076; 82550; 82553; 83690; 83735; 83880; 84439; 84443; 85025; 85610; 85652; 85730; 86140; 93005; 93041; 94760; 99285; Q9967

== ENCOUNTER → 2023-02-19 | Outpatient (CLI) | payer BC ==
[~2023-02-19] MED LIST changes: +BUSP5TA; +CHLO125TA; +FLUT1BLS4; +LEVO25TA5; +LISI20TA33
[2023-02-19 17:15] LABS: CALCIUM LEVEL 8.8 MG/DL (8.3-10.6); GLOMERULAR FILTRATION RATE 59.4 (>45)
== END ==
LOC: M PLALAB 13:54
PROVIDERS: ATTEND Nurse Practitioner Adult Health
DX: E87.6 Hypokalemia (principal)

== ENCOUNTER → 2023-03-17 | Outpatient (REF) | payer BC ==
[2023-03-17 14:52] LABS: BASO # 0.1 10^3/uL (0.0-0.2); EOS # 0.2 10^3/uL (0.0-0.5); EOS % 2.9 % (0.0-3.0); HEMATOCRIT 39.9 % (36.0-47.0); HEMOGLOBIN 12.7 g/dl (12.0-15.5); LYMPH # 1.8 10^3/uL (1.5-5.0); LYMPH % 31.6 % (24.0-44.0); MEAN CORPUSCULAR HEMOGLOBIN 29.2 pg (27.0-33.0); MEAN CORPUSCULAR HGB CONC 31.8 g/dl (32.0-36.5); MEAN CORPUSCULAR VOLUME 91.7 fl (80.0-96.0); MONO # 0.4 10^3/uL (0.0-0.8); MONO % 7.1 % (2.0-8.0); NEUTROPHILS # 3.3 10^3/uL (1.5-8.5); NEUTROPHILS % 57.2 % (36.0-66.0); PLATELET COUNT, AUTOMATED 280 10^3/uL (150-450); RED BLOOD COUNT 4.35 10^6/uL (4.00-5.40); WHITE BLOOD COUNT 5.8 10^3/uL (4.0-10.0)
[2023-03-17 15:03] LABS: ALBUMIN 3.7 G/DL (3.2-5.2); ALKALINE PHOSPHATASE 60 U/L (46-116); ALT/SGPT 20 U/L (7.0-40); AST/SGOT 13 U/L (<34); BILIRUBIN,TOTAL 0.4 MG/DL (0.3-1.2); BLOOD UREA NITROGEN 15 MG/DL (9-23); CALCIUM LEVEL 8.9 MG/DL (8.3-10.6); CARBON DIOXIDE LEVEL 27 MMOL/L (20-31); CHLORIDE LEVEL 107 MMOL/L (98-107); CHOLESTEROL LEVEL 179 MG/DL (<200); CHOLESTEROL RISK RATIO 3.39 (<5); CREATININE FOR GFR 0.87 MG/DL (0.55-1.30); FREE T4 1.23 NG/DL (0.89-1.76); GLOMERULAR FILTRATION RATE > 60.0 (>45); GLUCOSE, FASTING 87 MG/DL (74-106); HDL CHOLESTEROL 52.7 MG/DL (>40); LDL CHOLESTEROL 115.1 MG/DL (<100); NON-HDL-C 126.3 MG/DL; POTASSIUM SERUM 4.4 MMOL/L (3.5-5.1); SODIUM LEVEL 141 MMOL/L (136-145); THYROID STIMULATING HORMONE 2.483 uIU/ML (0.55-4.78); TOTAL 25(OH) VITAMIN D 60.8 NG/ML (20.0-100.0); TOTAL PROTEIN 7.2 G/DL (5.7-8.2); TRIGLYCERIDES LEVEL 56 MG/DL (<150)
[2023-03-17 15:30] LABS: HEMOGLOBIN A1c 5.5 % (4.0-6.0)
== END ==
LOC: M LABDRWAD 12:30
PROVIDERS: ATTEND Physician Assistant
DX: I10 Essential (primary) hypertension (principal)

== ENCOUNTER → 2023-04-28 | Outpatient (CLI) | payer BC ==
[2023-04-28 15:40] LABS: BASO # 0.1 10^3/uL (0.0-0.2); BASO % 0.6 % (0.0-1.0); EOS # 0.1 10^3/uL (0.0-0.5); EOS % 1.3 % (0.0-3.0); HEMATOCRIT 39.3 % (36.0-47.0); HEMOGLOBIN 13.1 g/dl (12.0-15.5); LYMPH # 2.2 10^3/uL (1.5-5.0); LYMPH % 27.3 % (24.0-44.0); MEAN CORPUSCULAR HEMOGLOBIN 29.8 pg (27.0-33.0); MEAN CORPUSCULAR HGB CONC 33.3 g/dl (32.0-36.5); MEAN CORPUSCULAR VOLUME 89.5 fl (80.0-96.0); MONO # 0.5 10^3/uL (0.0-0.8); MONO % 6.6 % (2.0-8.0); NEUTROPHILS # 5.1 10^3/uL (1.5-8.5); NEUTROPHILS % 63.9 % (36.0-66.0); PLATELET COUNT, AUTOMATED 264 10^3/uL (150-450); RED BLOOD COUNT 4.39 10^6/uL (4.00-5.40)
[2023-04-28 16:08] LABS: CK-MB VALUE MASS < 1.0 NG/ML (<3.6)
[2023-04-28 16:12] LABS: THYROID STIMULATING HORMONE 3.561 uIU/ML (0.55-4.78)
[2023-04-28 16:13] LABS: CPK CREATINE PHOSPHOKINASE 47 U/L (34-145); MB/CK RELATIVE INDEX 2.12 (< OR =4)
[2023-04-28 16:16] LABS: ALBUMIN 3.7 G/DL (3.2-5.2); ALKALINE PHOSPHATASE 68 U/L (46-116); ALT/SGPT 19 U/L (7.0-40); AST/SGOT 12 U/L (<34); BILIRUBIN,TOTAL 0.3 MG/DL (0.3-1.2); BLOOD UREA NITROGEN 17 MG/DL (9-23); CALCIUM LEVEL 8.8 MG/DL (8.3-10.6); CARBON DIOXIDE LEVEL 28 MMOL/L (20-31); CHLORIDE LEVEL 108 MMOL/L (98-107); GLOMERULAR FILTRATION RATE > 60.0 (>45); GLUCOSE, FASTING 93 MG/DL (74-106); POTASSIUM SERUM 4.1 MMOL/L (3.5-5.1); SODIUM LEVEL 141 MMOL/L (136-145); TOTAL PROTEIN 7.3 G/DL (5.7-8.2)
== END ==
LOC: M PLALAB 14:50
PROVIDERS: ATTEND Physician Assistant
DX: R07.89 Other chest pain (principal)

== ENCOUNTER → 2023-06-08 | Outpatient (REF) | payer BC ==
[2023-06-08 19:22] LABS: BLOOD UREA NITROGEN 14 MG/DL (9-23); CALCIUM LEVEL 9.2 MG/DL (8.3-10.6); CARBON DIOXIDE LEVEL 28 MMOL/L (20-31); CHLORIDE LEVEL 107 MMOL/L (98-107); CREATININE FOR GFR 0.82 MG/DL (0.55-1.30); GLOMERULAR FILTRATION RATE > 60.0 (>45); GLUCOSE, FASTING 117 MG/DL (74-106); POTASSIUM SERUM 3.9 MMOL/L (3.5-5.1); SODIUM LEVEL 140 MMOL/L (136-145)
== END ==
LOC: M LABDRWAD 17:14
PROVIDERS: ATTEND Physician Assistant
DX: I10 Essential (primary) hypertension (principal)

== ENCOUNTER → 2023-09-08 | Outpatient (CLI) | payer BC ==
[~2023-09-08] MED LIST changes: +ISOVUE-370 76% 100ML VIAL As Ordered ONE
== END ==
LOC: M RAD 16:51
PROVIDERS: ATTEND Family Medicine
DX: R06.02 Shortness of breath (principal)
CPT/HCPCS: 71275; Q9967

== ENCOUNTER → 2023-12-01 | Outpatient (CLI) | payer BC ==
[~2023-12-01] MED LIST changes: -ISOVUE-370 76% 100ML VIAL As Ordered ONE
[2023-12-01 14:58] LABS: BASO # 0.1 10^3/uL (0.0-0.2); BASO % 0.7 % (0.0-1.0); EOS # 0.1 10^3/uL (0.0-0.5); EOS % 1.7 % (0.0-3.0); HEMATOCRIT 39.2 % (36.0-47.0); HEMOGLOBIN 12.9 g/dl (12.0-15.5); LYMPH # 1.7 10^3/uL (1.5-5.0); LYMPH % 24.3 % (24.0-44.0); MEAN CORPUSCULAR HEMOGLOBIN 29.5 pg (27.0-33.0); MEAN CORPUSCULAR HGB CONC 32.9 g/dl (32.0-36.5); MEAN CORPUSCULAR VOLUME 89.7 fl (80.0-96.0); MONO # 0.6 10^3/uL (0.0-0.8); MONO % 7.7 % (2.0-8.0); NEUTROPHILS # 4.6 10^3/uL (1.5-8.5); NEUTROPHILS % 65.3 % (36.0-66.0); PLATELET COUNT, AUTOMATED 300 10^3/uL (150-450); RED BLOOD COUNT 4.37 10^6/uL (4.00-5.40); WHITE BLOOD COUNT 7.1 10^3/uL (4.0-10.0)
[2023-12-01 15:25] LABS: ALBUMIN 3.9 G/DL (3.2-5.2); ALKALINE PHOSPHATASE 67 U/L (46-116); ALT/SGPT 32 U/L (7.0-40); AST/SGOT 13 U/L (<34); BILIRUBIN,TOTAL 0.4 MG/DL (0.3-1.2); BLOOD UREA NITROGEN 16 MG/DL (9-23); CALCIUM LEVEL 9.4 MG/DL (8.3-10.6); CARBON DIOXIDE LEVEL 27 MMOL/L (20-31); CHLORIDE LEVEL 108 MMOL/L (98-107); CREATININE FOR GFR 0.87 MG/DL (0.55-1.30); GLOMERULAR FILTRATION RATE > 60.0 (>45); GLUCOSE, FASTING 66 MG/DL (74-106); POTASSIUM SERUM 4.4 MMOL/L (3.5-5.1); SODIUM LEVEL 139 MMOL/L (136-145); TOTAL PROTEIN 7.5 G/DL (5.7-8.2)
[2023-12-01 15:26] LABS: FREE T4 1.36 NG/DL (0.89-1.76); THYROID STIMULATING HORMONE 2.352 uIU/ML (0.55-4.78)
== END ==
LOC: M PLALAB 11:47
PROVIDERS: ATTEND Physician Assistant
DX: E03.9 Hypothyroidism, unspecified (principal); I10 Essential (primary) hypertension; S80.12XA Contusion of left lower leg, initial encounter

== ENCOUNTER → 2024-04-07 | Outpatient (CLI) | payer BC, MEDICARE ==
[~2024-04-07] MED LIST changes: -CYCL5TAB PO; +CYCL5TAB4 PO
[2024-04-07 14:30] LABS: BASO # 0.1 10^3/uL (0.0-0.2); BASO % 0.8 % (0.0-1.0); EOS # 0.2 10^3/uL (0.0-0.5); EOS % 3.5 % (0.0-3.0); HEMATOCRIT 39.9 % (36.0-47.0); HEMOGLOBIN 12.8 g/dl (12.0-15.5); LYMPH % 30.8 % (24.0-44.0); MEAN CORPUSCULAR HEMOGLOBIN 29.2 pg (27.0-33.0); MEAN CORPUSCULAR HGB CONC 32.1 g/dl (32.0-36.5); MEAN CORPUSCULAR VOLUME 91.1 fl (80.0-96.0); MONO # 0.5 10^3/uL (0.0-0.8); MONO % 7.4 % (2.0-8.0); NEUTROPHILS # 3.8 10^3/uL (1.5-8.5); NEUTROPHILS % 57.2 % (36.0-66.0); PLATELET COUNT, AUTOMATED 280 10^3/uL (150-450); RED BLOOD COUNT 4.38 10^6/uL (4.00-5.40); WHITE BLOOD COUNT 6.6 10^3/uL (4.0-10.0)
[2024-04-07 15:09] LABS: TOTAL IRON BINDING CAPACITY 319 UG/DL (250-425)
[2024-04-07 15:11] LABS: ALBUMIN 3.8 G/DL (3.2-5.2); ALKALINE PHOSPHATASE 78 U/L (35-104); ALT/SGPT 21 U/L (7.0-40); AST/SGOT 14 U/L (<34); BILIRUBIN,TOTAL 0.4 MG/DL (0.3-1.2); BLOOD UREA NITROGEN 15 MG/DL (9-23); CALCIUM LEVEL 9.6 MG/DL (8.3-10.6); CARBON DIOXIDE LEVEL 28 MMOL/L (20-31); CHLORIDE LEVEL 108 MMOL/L (98-107); CHOLESTEROL LEVEL 198 MG/DL (<200); CHOLESTEROL RISK RATIO 3.95 (<5); FREE T4 1.35 NG/DL (0.89-1.76); GLOMERULAR FILTRATION RATE > 60.0 (>45); GLUCOSE, FASTING 81 MG/DL (74-106); HDL CHOLESTEROL 50.1 MG/DL (>40); IRON (FE) 61 UG/DL (50-170); LDL CHOLESTEROL 129.9 MG/DL (<100); NON-HDL-C 147.9 MG/DL; PERCENT SATURATION 19.1 % (13.2-45.0); POTASSIUM SERUM 4.3 MMOL/L (3.5-5.1); SODIUM LEVEL 144 MMOL/L (136-145); THYROID STIMULATING HORMONE 4.872 uIU/ML (0.55-4.78); TOTAL PROTEIN 7.8 G/DL (5.7-8.2); TRIGLYCERIDES LEVEL 90 MG/DL (<150)
[2024-04-07 15:12] LABS: FERRITIN 41.2 NG/ML (7.3-270.7)
== END ==
LOC: M PLAIMG 09:34
PROVIDERS: ATTEND Physician Assistant
DX: E03.9 Hypothyroidism, unspecified (principal); K21.9 Gastro-esophageal reflux disease without esophagitis; I10 Essential (primary) hypertension; M79.662 Pain in left lower leg

== ENCOUNTER → 2024-09-25 | Outpatient (CLI) | payer MEDICARE ==
[2024-09-25 16:19] LABS: BASO # 0.1 10^3/uL (0.0-0.2); BASO % 0.9 % (0.0-1.0); EOS # 0.2 10^3/uL (0.0-0.5); EOS % 3.0 % (0.0-3.0); LYMPH # 2.0 10^3/uL (1.5-5.0); LYMPH % 34.1 % (24.0-44.0); MONO # 0.5 10^3/uL (0.0-0.8); MONO % 8.0 % (2.0-8.0); NEUTROPHILS # 3.1 10^3/uL (1.5-8.5); NEUTROPHILS % 53.8 % (36.0-66.0); PLATELET COUNT, AUTOMATED 268 10^3/uL (150-450)
[2024-09-25 16:46] LABS: ALT/SGPT 26.0 U/L (7.0-40); AST/SGOT 23.0 U/L (<34); CALCIUM LEVEL 9.2 MG/DL (8.3-10.6); CARBON DIOXIDE LEVEL 26.0 MMOL/L (20-31); CHLORIDE LEVEL 108.0 MMOL/L (98-107); CREATININE FOR GFR 0.96 MG/DL (0.55-1.30); GLOMERULAR FILTRATION RATE 65.7 (>45); IRON (FE) 82.0 UG/DL (50-170); POTASSIUM SERUM 4.6 MMOL/L (3.5-5.1); SODIUM LEVEL 144.0 MMOL/L (136-145)
[2024-09-25 16:48] LABS: FREE T4 1.19 NG/DL (0.89-1.76)
== END ==
LOC: M PLALAB 12:42
PROVIDERS: ATTEND Physician Assistant
DX: E03.9 Hypothyroidism, unspecified (principal); D50.9 Iron deficiency anemia, unspecified